=== PATIENT | male | born 1965 | race Caucasian/White ===

== ENCOUNTER → 2018-06-20 | Outpatient (CLI) | payer MEDICARE ==
[2018-06-20 12:55] LABS: BASOPHILS ABSOLUTE AUTO 0.05 K/mm3 (0.00-0.23); BASOPHILS PERCENT AUTO 0 % (0-2); EOSINOPHILS PERCENT AUTO 1 % (0-6); Hematocrit 44.2 % (37.0-53.0); IMMATURE GRAN ABSOLUTE AUTO 0.04 K/mm3 (0.00-0.10); IMMATURE GRAN PERCENT AUTO 0 % (0-1); LYMPHOCYTES ABSOLUTE AUTO 1.65 K/mm3 (0.84-5.20); LYMPHOCYTES PERCENT AUTO 12 % (21-46); MONOCYTES ABSOLUTE AUTO 1.18 K/mm3 (0.16-1.47); MONOCYTES PERCENT AUTO 9 % (4-13); Mean Corpuscular HGB 32.8 pg (26.0-34.0); Mean Corpuscular HGB Conc 33.9 g/dL (31.5-36.5); Mean Corpuscular Volume 97 fL (80-100); Mean Platelet Volume 10.1 fL (9.1-12.4); NEUTROPHILS ABSOLUTE AUTO 10.84 K/mm3 (1.96-9.15); NEUTROPHILS PERCENT AUTO 78 % (41-73); Platelet Count 347 K/mm3 (150-400); RDW Coefficient Variation 11.9 % (11.7-14.2); RDW Standard Deviation 42.7 fL (35.1-46.3); Red Blood Cell Count 4.58 M/mm3 (4.30-5.90); White Blood Cell Count 13.86 K/mm3 (4.00-11.30)
[2018-06-20 15:24] LABS: Adenovirus F 40/41 Not Detected (NOT DETECT); Astrovirus Not Detected (NOT DETECT); Campylobacter Sp Not Detected (NOT DETECT); Cryptosporidium Not Detected (NOT DETECT); Cyclospora Cayetanensis Not Detected (NOT DETECT); E. Coli O157 Not Detected (NOT DETECT); Entamoeba Histolytica Not Detected (NOT DETECT); Enteroaggregative E. coli-EAEC Not Detected (NOT DETECT); Enteropathogenic E. coli-EPEC Not Detected (NOT DETECT); Enterotoxigenic E. coli-ETEC Not Detected (NOT DETECT); Giardia Lamblia Not Detected (NOT DETECT); Norovirus GI/GII Not Detected (NOT DETECT); Plesiomonas Shigelloides Not Detected (NOT DETECT); Rotavirus A Not Detected (NOT DETECT); Salmonella Sp Not Detected (NOT DETECT); Sapovirus Not Detected (NOT DETECT); Shiga Toxin-prod E. coli-STEC Not Detected (NOT DETECT); Shigella/Enteroin E. coli-EIEC Not Detected (NOT DETECT); Vibrio Cholerae Not Detected (NOT DETECT); Vibrio Sp Not Detected (NOT DETECT); Yersinia Enterocolitica Not Detected (NOT DETECT)
== END | disposition home or self-care (01) ==
LOC: LAB SHORT 12:40 → LAB 12:40
PROVIDERS: Emergency Medicine
DX: R10.84 Generalized abdominal pain (principal); R19.7 Diarrhea, unspecified
CPT/HCPCS: 85025; 87507

== ENCOUNTER → 2018-06-30 | Outpatient (CLI) | payer MEDICARE ==
[2018-06-30 14:27] LABS: BASOPHILS ABSOLUTE AUTO 0.04 K/mm3 (0.00-0.23); BASOPHILS PERCENT AUTO 0 % (0-2); EOSINOPHILS ABSOLUTE AUTO 0.22 K/mm3 (0.00-0.68); EOSINOPHILS PERCENT AUTO 2 % (0-6); Hematocrit 42.6 % (37.0-53.0); Hemoglobin 14.1 g/dL (13.5-17.5); IMMATURE GRAN ABSOLUTE AUTO 0.04 K/mm3 (0.00-0.10); IMMATURE GRAN PERCENT AUTO 0 % (0-1); LYMPHOCYTES ABSOLUTE AUTO 2.04 K/mm3 (0.84-5.20); LYMPHOCYTES PERCENT AUTO 16 % (21-46); MONOCYTES ABSOLUTE AUTO 0.93 K/mm3 (0.16-1.47); MONOCYTES PERCENT AUTO 8 % (4-13); Mean Corpuscular HGB 32.2 pg (26.0-34.0); Mean Corpuscular HGB Conc 33.1 g/dL (31.5-36.5); Mean Corpuscular Volume 97 fL (80-100); Mean Platelet Volume 10.5 fL (9.1-12.4); NEUTROPHILS PERCENT AUTO 74 % (41-73); Platelet Count 370 K/mm3 (150-400); RDW Coefficient Variation 11.9 % (11.7-14.2); RDW Standard Deviation 42.9 fL (35.1-46.3); Red Blood Cell Count 4.38 M/mm3 (4.30-5.90); White Blood Cell Count 12.47 K/mm3 (4.00-11.30)
[2018-06-30 14:43] LABS: Alanine Aminotransfer (ALT/SGP 14 U/L (12-78); Albumin, Blood 3.2 g/dL (3.4-5.0); Albumin/Globulin Ratio 0.7 (0.8-1.8); Alk Phos 60 U/L (50-136); Anion Gap 5 mmol/L (6-16); Aspartate Aminotrans (AST/SGOT 7 U/L (12-37); Bilirubin, Total 0.5 mg/dL (0.1-1.0); Blood Urea Nitrogen 7 mg/dL (8-24); Bun/Creatinine Ratio 9.6 (12.0-20.0); CO2, Blood 29 mmol/L (21-32); Calcium, Blood 8.5 mg/dL (8.5-10.1); Chloride, Blood 105 mmol/L (98-108); Creatinine, Blood 0.73 mg/dL (0.60-1.20); Globulin, Blood 4.3 g/dL (2.2-4.0); Glomerular Filtration Rate >60 (60-); Glucose, Blood 91 mg/dL (70-99); Potassium, Blood 3.9 mmol/L (3.5-5.5); Sodium, Blood 139 mmol/L (136-145); Total Protein, Blood 7.5 g/dL (6.4-8.2)
== END | disposition home or self-care (01) ==
LOC: LAB SHORT 14:15 → LAB 14:15
PROVIDERS: Anesthesiology
DX: R10.84 Generalized abdominal pain (principal)
CPT/HCPCS: 80053; 85025

== ENCOUNTER 2018-07-13 19:03 | Inpatient (IN) | payer MEDICARE ==
[~2018-07-13] VITALS: Ht 177.8 cm; Wt 73.2 kg
[2018-07-13 19:41] LABS: BASOPHILS ABSOLUTE AUTO 0.03 K/mm3 (0.00-0.23); BASOPHILS PERCENT AUTO 0 % (0-2); EOSINOPHILS ABSOLUTE AUTO 0.05 K/mm3 (0.00-0.68); EOSINOPHILS PERCENT AUTO 0 % (0-6); Hematocrit 36.8 % (37.0-53.0); Hemoglobin 12.5 g/dL (13.5-17.5); IMMATURE GRAN ABSOLUTE AUTO 0.07 K/mm3 (0.00-0.10); IMMATURE GRAN PERCENT AUTO 0 % (0-1); LYMPHOCYTES ABSOLUTE AUTO 2.47 K/mm3 (0.84-5.20); LYMPHOCYTES PERCENT AUTO 15 % (21-46); MONOCYTES ABSOLUTE AUTO 1.49 K/mm3 (0.16-1.47); MONOCYTES PERCENT AUTO 9 % (4-13); Mean Corpuscular HGB 31.3 pg (26.0-34.0); Mean Platelet Volume 10.1 fL (9.1-12.4); NEUTROPHILS ABSOLUTE AUTO 12.15 K/mm3 (1.96-9.15); NEUTROPHILS PERCENT AUTO 75 % (41-73); Platelet Count 366 K/mm3 (150-400); RDW Coefficient Variation 11.9 % (11.7-14.2); Red Blood Cell Count 3.99 M/mm3 (4.30-5.90); White Blood Cell Count 16.26 K/mm3 (4.00-11.30)
[2018-07-13 19:44] LABS: Mean Corpuscular Volume 92 fL (80-100)
[2018-07-13 19:53] LABS: International Normalized Ratio 1.06; Prothrombin Time Results 11.2 Sec (9.7-11.5)
[2018-07-13 20:03] LABS: Alanine Aminotransfer (ALT/SGP 14 U/L (12-78); Albumin, Blood 3.1 g/dL (3.4-5.0); Albumin/Globulin Ratio 0.6 (0.8-1.8); Alk Phos 83 U/L (50-136); Anion Gap 7 mmol/L (6-16); Aspartate Aminotrans (AST/SGOT 8 U/L (12-37); Bilirubin, Total 0.4 mg/dL (0.1-1.0); Blood Urea Nitrogen 6 mg/dL (8-24); Bun/Creatinine Ratio 7.3 (12.0-20.0); CO2, Blood 25 mmol/L (21-32); Calcium, Blood 8.6 mg/dL (8.5-10.1); Chloride, Blood 103 mmol/L (98-108); Creatinine, Blood 0.82 mg/dL (0.60-1.20); Globulin, Blood 5.1 g/dL (2.2-4.0); Glomerular Filtration Rate >60 (60-); Glucose, Blood 92 mg/dL (70-99); Potassium, Blood 3.2 mmol/L (3.5-5.5); Sodium, Blood 135 mmol/L (136-145); Total Protein, Blood 8.2 g/dL (6.4-8.2)
--- NOTE | 2018-07-14 07:18 | NUR ---
SHIFT SUMMARY PT NEW ADMIT THIS SHIFT. AAOX4. NPO. DISCOMFORT CONTROLLED WITH 1MG IV DILAUDID Q2H. NO NAUSEA/EMESIS. INDEPENDENT IN ROOM. ORIENTED TO ROOM + CALL LIGHT USE. GOOD OUTPUT. PT RESTED INTERMITTENTLY T/O NIGHT. CALL LIGHT IN REACH + PT USES FOR ASSISTANCE.
--- NOTE | 2018-07-14 17:30 | NUR ---
SHIFT SUMMARY PT AAOX4. PAIN MANAGED 1MG DILAUDID X7 DURING SHIFT EVERY 2 HOURS. TORODOL X2 FOR PAIN WELL. PT INDEPENDANT TO BATHROOM, EXPRESSED SOME DIFFICULTY WITH URINATION, STILL ABLE TO URINATE. PT CALLS APPROPRIATLY, ABLE TO MOVE IN BED. CALL LIGHT IN REACH. PT TOLERATING CLEAR LIQUIDS.
--- NOTE | 2018-07-14 17:31 | NUR ---
THIS RN AGREES WITH DATA CENTER ENGINEER DOCUMENTATION.
[2018-07-15 05:04] LABS: BASOPHILS ABSOLUTE AUTO 0.03 K/mm3 (0.00-0.23); BASOPHILS PERCENT AUTO 0 % (0-2); EOSINOPHILS ABSOLUTE AUTO 0.15 K/mm3 (0.00-0.68); EOSINOPHILS PERCENT AUTO 1 % (0-6); Hematocrit 31.2 % (37.0-53.0); Hemoglobin 10.5 g/dL (13.5-17.5); IMMATURE GRAN ABSOLUTE AUTO 0.04 K/mm3 (0.00-0.10); IMMATURE GRAN PERCENT AUTO 0 % (0-1); LYMPHOCYTES ABSOLUTE AUTO 1.75 K/mm3 (0.84-5.20); LYMPHOCYTES PERCENT AUTO 16 % (21-46); MONOCYTES ABSOLUTE AUTO 1.23 K/mm3 (0.16-1.47); MONOCYTES PERCENT AUTO 11 % (4-13); Mean Corpuscular HGB 31.3 pg (26.0-34.0); Mean Corpuscular HGB Conc 33.7 g/dL (31.5-36.5); Mean Corpuscular Volume 93 fL (80-100); Mean Platelet Volume 9.8 fL (9.1-12.4); NEUTROPHILS PERCENT AUTO 71 % (41-73); Platelet Count 257 K/mm3 (150-400); RDW Coefficient Variation 11.8 % (11.7-14.2); RDW Standard Deviation 40.1 fL (35.1-46.3); Red Blood Cell Count 3.35 M/mm3 (4.30-5.90)
[2018-07-15 05:24] LABS: Anion Gap 8 mmol/L (6-16); Blood Urea Nitrogen 7 mg/dL (8-24); CO2, Blood 24 mmol/L (21-32); Chloride, Blood 105 mmol/L (98-108); Glomerular Filtration Rate >60 (60-); Glucose, Blood 90 mg/dL (70-99); Potassium, Blood 3.6 mmol/L (3.5-5.5); Sodium, Blood 137 mmol/L (136-145)
--- NOTE | 2018-07-15 07:46 | NUR ---
SUMMARY PT REQUESTING AND RECEIVING DILAUDID Q2 HR IV TONIGHT FOR PAIN EXCEPT WHEN ER ORDER WAS OUTDATED AT BEGINNING OF SHIFT AND IT WAS NECESSARY TO OBTAIN NEW ORDER. PT RAT ES PAIN FROM 8-10 CONSISTENLTY ALTHOUGH REPORTS TO THIS RN PAIN IS "BETTER " THAN ON ADMIT.
--- NOTE | 2018-07-15 17:04 | NUR ---
SUMMARY NO ACUTE CHANGES T/O SHIFT. PT HAD TWO EPISODES OF EMESIS DURING SHIFT. REPORTED FEELS NAUSEATED; HAVE MSG OUT TO DR MOTA TO OBTAIN ORDERS FOR NAUSEA MEDICATION. MEDICATED REGULARLY T/O SHIFT PER ORDERS FOR ABDOMINAL PAIN. PT REPORTS PAIN IS "MUCH BETTER" THAN BEFORE ADMIT. PT AMBULATED INDEPENDENTLY IN HALLS TWICE DURING SHIFT. PLEASANT AND COOPERATIVE. CALL LIGHT IN REACH.
--- NOTE | 2018-07-16 06:53 | NUR ---
.SUMMARY PT REQUIRING DILAUDID IV Q2 HR FOR PAIN CONTROL AND ZOFRAN FOR NAUSEA. PT HAD SMALL LIQ BROWN STOOL THIS AM. VOIDING JOSE URINE.PT REPORTS STREAM SLOW ALTHOUGH STATES NO FURTHER URGE TO VOID AT PRESENT. BLADDER SCANNED FOR 299 ENC PT TO ATTEMPT VOID EVEN WITHOUT URGE. PT AGREES
--- NOTE | 2018-07-16 17:04 | NUR ---
SUMMARY NO ACUTE CHANGES T/O SHIFT. DR MOTA CHANGED PT'S PAIN MEDS FROM IV DILAUDID TO PO NORCO. THIS AFTERNOON, PT'S PAIN MANAGEMENT AND NAUSEA HAS IMPROVED. ALSO VOIDING MORE. AMBULATES IN HALLS AND AMBULATED OUTSIDE INDEPENDENTLY. PLEASANT AND COOPERATIVE. CALL LIGHT IN REACH.
--- NOTE | 2018-07-16 17:31 | NUR ---
turned over care to Chantell KUMAR
--- NOTE | 2018-07-17 06:41 | NUR ---
SUMMARY PT REPORTS PAIN WELL CONTROLLED WITH PO PAIN MEDS. NO C/O NAUSEA. VOIDIG CLR YELOW TONIGHT. PASSING FLATUS.
--- NOTE | 2018-07-17 10:00 | NUR ---
CHANGE IN URINE PT'S URINE IS MUCH DARKER, LIGHT BROWN. NOTIFIED DR MOTA.
--- NOTE | 2018-07-17 17:57 | NUR ---
SHIFT SUMMARY PT IS DOING WELL AND TOLERATING FULL LIQUID DIET WELL. MEDICATED FOR PAIN ONLY ONCE DURING SHIFT WITH ONE NORCO. VOIDING AND PASSING GAS. URINE WAS DARK TEA COLOR BEGINNING OF SHIFT AND IS NOW A CLEAR, YELLOW COLOR. PATIENT DENIES ANY PAIN OR DIFFICULTY WITH URINATION. IND IN ROOM AND AMBULATED SEVERAL TIMES HALLWAY T/O DAY.
--- NOTE | 2018-07-17 18:04 | NUR ---
TOLERATING DIET PT TOLERATING CLEAR LIQUID DIET WELL. EDUCATED TO TAKE SMALL SIPS SLOWLY AND TO REPORT ANY N/V OR DISCOMFORT.
--- NOTE | 2018-07-18 04:57 | NUR ---
SHIFT SUMMARY: NO ACUTE CHANGES OVER NIGHT. PAIN MANAGED WITH NORCO 10MG Q4 PER EMAR. GIVEN ZOFRAN FOR C/O NAUSEA ONCE. PT MAN FULL LIQUID DIET. INDEPENDENT IN ROOM. AMBULATING OUTSIDE PRN. LIPIDS AND CLINIMIX INFUSING. PT IN PROCESS OF DRINKING FULL AMOUNT OF ORAL CONTRAST. PLAN FOR CT THIS AM AT 0600.
--- NOTE | 2018-07-18 05:27 | NUR ---
PT REPORTS A SUDDEN "TEARING" PAIN IN ABD WHILE ATTEMPTING TO HAVE A BM. PT REPORTS PAIN LASTED FOR APPROX 10 SEC. STATES THAT THE LAST TIME HE FELT THAT TYPE OF PAIN WAS 6 WEEKS AGO WHEN THE SYMPTOMS BEGAN. PT NOW REPORTING THAT PAIN IS TOLERABLE.
--- NOTE | 2018-07-18 05:56 | NUR ---
PT HAS COMPLETED ORAL CONTRAST AND IS NOW SALINE LOCKED FOR SCHED CT SCAN. PT TRANSPORTING VIA WHEELCHAIR. GIVEN PAIN MEDICATION. PT ALSO GIVEN ZOFRAN R/T NAUSEA FROM CONTRAST.
--- NOTE | 2018-07-18 06:17 | NUR ---
PT BACK TO ROOM FROM CT SCAN
--- NOTE | 2018-07-18 17:44 | NUR ---
SHIFT SUMMARY PT DOING WELL, TOLERATING REGULAR DIET, AMBULATING SEVERAL TIMES IN HALLWAY AND IND IN ROOM. VOIDING, PASSING GAS, AND BM TODAY. MEDICATED ONCE FOR PAIN WITH ONE NORCO. REPORTS ONE EPISODE OF NAUSEA THAT RESOLVED ON OWN.
--- NOTE | 2018-07-19 16:54 | NUR ---
SHIFT SUMMARY NO ACUTE CHANGES TODAY. PT REPORTS FEELING MUCH BETTER. TAKING 1 NORCO FOR PAIN PRN. AMBULATING HALLWAY INDEPENDENTLY. VOIDING AND DID HAVE A LIQ BM TODAY. CLINIMIX AND LIPIDS DC'D. PT MAN REG DIET. PLAN IS FOR PT TO DC HOME TOMORROW. USES CALL LIGHT APPROPRIATELY. WILL CONT TO MONITOR.
--- NOTE | 2018-07-20 05:14 | NUR ---
PT HAD NO ACUTE CHANGES T/O NIGHT; VSS. PAIN MGD PER EMAR W/REP RELIEF. PT MAN REG PO, NO C/O N/V. PT VOIDING URINE W/O DIFFICULTY, REP STOOL BECOMING SOMEWHAT MORE FORMED. PT YANY IDEP IN ROOM, IS USING CALL LIGHT FOR ASSISTANCE. PLAN FOR D/C HOME TODAY. WILL CONT TO MONITOR UNTIL REP GIVEN TO ONCOMING RN.
[2018-07-20] MEDS ORDERED: LEVO750 PO (09:53)
[2018-07-20] MEDS ORDERED: Norco 5-325 Ta1 EACH PO (09:53)
[2018-07-20] MEDS ORDERED: METR500 PO (09:54)
--- NOTE | 2018-07-20 11:07 | NUR ---
DISCHARGED DC'D IV, CATHETER INTACT. REVIEWED DC PAPERWORK; PT VERBALIZED UNDERSTANDING. CALLED FLAG[facility] AND LEVAQUIN PRESCRIPTION IN TO PAUL. PT LEFT UNIT BY AMBULATION, ACCOMPANIED BY FAMILY. POSSESSIONS AND DC PAPERWORK IN HAND.
== END 2018-07-20 11:08 | disposition home or self-care (01) | DRG 392 ==
LOC: ER 19:03 → SURS 19:04
PROVIDERS: Emergency Medicine; ADMIT Surgery
DX: K57.20 Diverticulitis of large intestine with perforation and abscess without bleeding (principal)
CPT/HCPCS: 36415; 74177; 80048; 80053; 83605; 83690; 85025; 85610; 87040; 93005; 93010; 96365; 96368; 96375; 99285-25; A9270-GY; J1170; J1885; J1956; J2405; J3370; J3480; J7030; J7050; J7120; Q9967

== ENCOUNTER 2018-09-04 11:18 | Inpatient (IN) | payer MEDICARE ==
[~2018-09-04] VITALS: Ht 177.8 cm; Wt 70.6 kg
[~2018-09-04 11:18] MED LIST: ACIDOPHILUS PR0.5 MG PO; DOCU100 PO; LEVO750 PO; METR500 PO; MIRALAX17 GM PO; NEOM500 PO; Norco 5-325 Ta1 EACH PO
--- NOTE | 2018-09-04 12:32 | NUR ---
1150 Ambulatory in Day Surgery Surgical site prepped with 2% Chlorhexidine cloth wipe. History, Chart, Medications and Allergies reviewed before start of procedure.Lungs clear T/O to Auscultation. Patient confirms NPO status and agrees with scheduled surgery. Pre-Op teaching done. Pt verbalizes understanding. Patient reports completing Chlorhexadine shower X2 prior to admission to hospital.
--- NOTE | 2018-09-04 20:10 | NUR ---
PT WITH EPIDURAL RUNNING TO CLEAR INTACT SITE. MOVES ARMS FREELY. RESP APPEAR EVENA ND UNLABORED. PT HAS NOTED HYPERSENSITIVITY TO L ABD AND SLIGHT DECREASED SENSATION R ABD. L THIGH WITH NO N/T NOTED . R THIGH AND CALF REPORTED N/T ALTHOUGH WIGGLES TOES BILAT AND ABLE TO LIFT R KNEE SLIGHTLY AND MODERATLEY LIFTS L KNEE. PER AND DAY RN THESE CKS ARE UNCHANGED.
--- NOTE | 2018-09-05 03:40 | NUR ---
PT WITH CONTIUED SAME EPIDURAL CKS AND CRYING WHEN REPOSITIONED ALTHOUGH EPIDURAL WAS INCREASED TO MAX OF 16 PER ORDERS. I CALLED ANESTHESIA AND DISCUSSED FULL ASSESSMENT AND C/O PAIN. DR HINOJOSA CAME TO SEE PT AND REPORTED HE GAVE PT BOLUS 5 ML EACH XYLOCAINE WITH EPI AND WITHOUT. AFTER PT REPORTED SOME IMPROVEMENT HOWEVER, NO CHANGE IN PAIN NUMBER HE USED TO RATE PAIN.ANESTHSIA VERB PT WOULD BE SEEING ANOTHER ANESTHIA LATER TODAY IN FOLLOW UP.
[2018-09-05 03:54] LABS: BASOPHILS ABSOLUTE AUTO 0.02 K/mm3 (0.00-0.23); BASOPHILS PERCENT AUTO 0 % (0-2); EOSINOPHILS PERCENT AUTO 0 % (0-6); Hematocrit 29.5 % (37.0-53.0); Hemoglobin 9.7 g/dL (13.5-17.5); IMMATURE GRAN ABSOLUTE AUTO 0.06 K/mm3 (0.00-0.10); IMMATURE GRAN PERCENT AUTO 0 % (0-1); LYMPHOCYTES ABSOLUTE AUTO 1.25 K/mm3 (0.84-5.20); LYMPHOCYTES PERCENT AUTO 9 % (21-46); MONOCYTES PERCENT AUTO 8 % (4-13); Mean Corpuscular HGB 30.7 pg (26.0-34.0); Mean Corpuscular HGB Conc 32.9 g/dL (31.5-36.5); Mean Corpuscular Volume 93 fL (80-100); Mean Platelet Volume 9.5 fL (9.1-12.4); NEUTROPHILS ABSOLUTE AUTO 12.23 K/mm3 (1.96-9.15); NEUTROPHILS PERCENT AUTO 83 % (41-73); Platelet Count 320 K/mm3 (150-400); RDW Coefficient Variation 13.2 % (11.7-14.2); RDW Standard Deviation 45.2 fL (35.1-46.3); Red Blood Cell Count 3.16 M/mm3 (4.30-5.90); White Blood Cell Count 14.76 K/mm3 (4.00-11.30)
[2018-09-05 04:09] LABS: Anion Gap 5 mmol/L (6-16); Blood Urea Nitrogen 16 mg/dL (8-24); Bun/Creatinine Ratio 21.1 (12.0-20.0); CO2, Blood 26 mmol/L (21-32); Calcium, Blood 7.4 mg/dL (8.5-10.1); Chloride, Blood 108 mmol/L (98-108); Creatinine, Blood 0.76 mg/dL (0.60-1.20); Glomerular Filtration Rate >60 (60-); Glucose, Blood 123 mg/dL (70-99); Potassium, Blood 4.1 mmol/L (3.5-5.5); Sodium, Blood 139 mmol/L (136-145)
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
--- NOTE | 2018-09-05 13:35 | NUR ---
DR. HILL NOTIFIED THAT PT'S PAIN IS INCREASED, PT NOW RATING 7/10 WHEN THIS AM PAIN WAS 4/10 AT ABD. EPIDURAL NOT MANAGING PT PAIN WELL. DR. HILL ASKED THIS RN TO CALL DR.STUART DEJESUS. DR. HINOJOSA NOTIFIED, WILL CTM PT STATUS.
--- NOTE | 2018-09-05 20:05 | NUR ---
DR. MOTA IN TO SEE PT, EPIDURAL CONTINUES TO NOT MANAGE PAIN. ORDER TO STOP EPIDURAL AND START IV OPTICIAN APPRENTICE FENTANYAL. EPIDURAL STOPPED AT 1655, EPIDURAL CATH LEFT IN PLACE. WILL START FENTANYAL OPTICIAN APPRENTICE AND CTM PT STATUS
--- NOTE | 2018-09-05 20:10 | NUR ---
SUMMARY: NO ACUTE CHANGE TODAY. SEE PREVIOUS NOTES. PT VSS AND Q1 HR EPIDURAL CHECKS STABLE. PT PAIN INCREASED THROUGHOUT DAY WITHOUT RELIEF FROM EPIDURAL OR IV TORADOL, SWITCHED TO FENTAYAL NAPHTHALENE STILL OPERATOR, SEE MD NOTES AND EMAR. PT RATING PAIN 5/10 AT END OF SHIFT. OSTOMY WNL, NO GAS OR OUTPUT, SURGICAL SITE INTACT. NO ACUTE SAFETY CONCERNS AT THIS TIME REPORT GIVEN TO JOSÉ GARCIA.
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
[2018-09-06] MEDS ORDERED: Flonase 0.05% N16 GM (07:13)
[2018-09-06] MEDS ORDERED: XYZAL5 MG PO (07:14)
--- NOTE | 2018-09-06 18:18 | NUR ---
SHIFT SUMMARY NO ACUTE CHANGES. VSS. PT USING FENTANYL COREMAKER MACHINE FOR PAIN AND RECEIVING TORADOL. PREVENA TO MIDLINE REMAINS CDI WITH BINDER IN PLACE. PT EPIDURAL DC'D AND SENSATION IS BETTER--SLIGHT NUMBNESS TO R THIGH ONLY BUT CAN WIGGLE TOES AND FLEX AND LIFT LEGS. PLANNING TO GET PT INTO CHAIR. ISRAEL PATENT. PT MAN CLEAR LIQ DIET. USES CALL LIGHT APPROPRIATELY.
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
--- NOTE | 2018-09-07 16:33 | NUR ---
SHIFT SUMMARY NO ACUTE CHANGES THIS SHIFT. PT CONT TO DO WELL. USING FENTANYL BIOINFORMATICS ASSISTANT FOR PAIN AND TORADOL PRN. PT UP TO CHAIR FOR PART OF THE DAY WITH SBA. PREVENA WOUND VAC TO MIDLINE ABD CDI WITH BINDER IN PLACE AT TIMES. OSTOMY STOMA BEEFY RED WITH SCANT SS DRAINAGE. NO FLATUS NOTED IN BAG YET. PT ADVANCING TO REG DIET FOR DINNER TONIGHT. USING URINAL TO VOID AT BEDSIDE. ENCOURAGING I/S AND FLUTTER VALVE USE. CALL LIGHT WITHIN REACH.
--- NOTE | 2018-09-08 05:34 | NUR ---
SHIFT SUMMARY: PT POD #4 FOR SIGMOID COLECTOMY. NO ACUTE CHANGES THIS SHIFT. OSTOMY DRAINING SMALL AMT OF SS FLUID. PRODUCING SOME GAS. PT EDUCATED ON HOW TO BURP OSTOMY BAG. PROVENA WOUND VAC INTACT WITH FOAM COMPRESSED. VOIDING SMALL AMT IN URINE. PAIN MANAGED WITH FENTANYL LINK TRAINER OPERATOR AND TORADOL. C/O SOME GAS PAINS. MAN REG DIET. DENIES N/V. PT IN CHAIR FOR PART OF SHIFT.
--- NOTE | 2018-09-08 07:40 | NUR ---
pt passing flatus stoma pink and moist no stool no nausea aleyda food pt only moving in the room encouraged pt to amb in hallway also discussed pain control pain is 6/10 with cough
--- NOTE | 2018-09-08 12:22 | NUR ---
pt eating lunch
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
--- NOTE | 2018-09-08 17:18 | NUR ---
ostomy teaching with demonstration supplies given with handouts also with
--- NOTE | 2018-09-08 18:12 | NUR ---
pt eating dinner
--- NOTE | 2018-09-08 18:32 | NUR ---
pt went outside to smoke still no stool flatus
--- NOTE | 2018-09-09 07:48 | NUR ---
SUMMARY: POD 5 RUPTURED DIVERTIC WITH ABCESS AND NEW COLOSTOMY PLACEMENT BY DR. MOTA. VSS, AFEBRILE, ROOM AIR, TOLERATING SMALL PORTIONS OF REG DIET, VOIDING. MINIMAL GAS OUTPUT IN OSTOMY APPLIANCE WITH SMALL AMOUNT OF BLOODY DRAINAGE. PREVENA TUBING AND CANNISTER EMPTY OF ANY DRAINAGE. PT PAIN WELL CONTROLLED WITH 2 TABS NORCO AND TORDAL. PT BEGAN HAVING MODERATE ABD CRAMPING AND PAIN WITH MILD DISTENTION; ENCOURAGED TO AMBULATE FREQUENTLY TOLERATED TODAY TO BEGIN PASSING MORE GAS.
--- NOTE | 2018-09-09 16:23 | NUR ---
SHIFT SUMMARY PT A&OX4, RA, VSS. POD#5 COLECTOMY W/OSTOMY W/FLATUS AND BROWN LIQ STOOL OUTPUT, MIDLINE PREVENA. PAIN MANAGED WITH 10 MG OXY AND TORADOL. MAN REG DIET, DENIES N&V. INDEPENDENT, AMBULATING IN ROOM, HALLWAY AND OUTSIDE TO SMOKE. WCTM.
--- NOTE | 2018-09-09 19:30 | NUR ---
PT OUT OF ROOM DURING ROUNDING. WILL AWAIT RETURN AND DO FULL ASSESSMENT.
--- NOTE | 2018-09-10 06:06 | NUR ---
POD 6 S/P COLECTOMY/COLOSTOMY. PT VSS T/O NIGHT. PAIN MGD PER EMAR W/REP RELIEF. SURG DRESSING CDI. OSTOMY PUTTING OUT LIQ BROWN STOOL. OSTOMY EDUCATION CONT, PT ENGAGED AND ASKING QUESTIONS. PT AMB FREQUENTLY IN HALLS, MAN WELL. PLAN TO D/C HOME TODAY. WILL CONT TO MONITOR UNTIL REP GIVEN TO ONCOMING RN.
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
[2018-09-10] MEDS ORDERED: Norco 10-325 T1 EACH PO (14:12)
--- NOTE | 2018-09-10 15:51 | NUR ---
DR. GUILLAUME SAW PT AND DC ORDERS ENTERED. PT'S PRAVENA WOUND VAC DC'D AND REPLACED WITH MEDIPORE DRESSING, SURGICAL SITE WNL. OSTOMY APPLIANCE REPLACED, EDUCATED PT AND PT ON HOW TO REPLACE APPLANCE, ASSISTED THIS RN IN REPLACING. WRITTEN EDUCATIONAL MATERIAL GIVEN. PT EDUCATED ABOUT OSTOMY CARE, DIET, AND HOW TO OBTAIN OSTOMY SUPPLIES. CATE, UNDERGRADUATE INTERN ORDERED SUPPLIES VIA CONVATE. UPON DISCHARGE PT GIVEN OSTOMY SUPPLIES TO LAST UNTIL ORDER COMES TO PT HOME. WENT OVER DC PACKET, SCRIPTS GIVEN TO PT . PT VERBALIZED UNDERSTANDING. LEFT UNIT ON FOOT WITH AT 1430.
== END 2018-09-10 14:30 | disposition home or self-care (01) | DRG 331 ==
LOC: SURS 11:18 → PRE IP 13:30 → SURS 18:06
PROVIDERS: ADMIT Surgery
PROC: 0D1N0Z4 Bypass Sigmoid Colon to Cutaneous, Open Approach (ICD-10-PCS; 2018-09-04)
PROC: 0DTN0ZZ Resection of Sigmoid Colon, Open Approach (ICD-10-PCS; principal; 2018-09-04 13:30)
DX: K57.20 Diverticulitis of large intestine with perforation and abscess without bleeding (principal); F17.210 Nicotine dependence, cigarettes, uncomplicated; F90.9 Attention-deficit hyperactivity disorder, unspecified type
CPT/HCPCS: 36415; 80048; 85025; 88307; 94762; J1100; J1170; J1650; J1885; J1956; J2250; J2405; J2704; J2765; J3010; J7120

== ENCOUNTER 2019-04-10 10:40 | Inpatient (IN) | payer MEDICARE ==
[~2019-04-10] VITALS: Ht 177.8 cm; Wt 78.5 kg
[~2019-04-10 10:40] MED LIST changes: +Flonase 0.05% N16 GM; +Norco 10-325 T1 EACH PO; +XYZAL5 MG PO
--- NOTE | 2019-04-11 14:00 | NUR ---
PT ARRIVED TO ROOM 231 S/P COLOSTOMY CLOSURE PT STILL HAS OSTOMY PT STATED PAIN IS 7/10 PT AT BEDSIDE NO NAUSEA PT HAS FOLDED UP BLANKET TO SPLINT ABD PT GIVEN SOME ICE CHIPS PT HAS ORDER FOR SURGICAL DRESSING MAKER CALLED PHARMACY FOR ORDER PT HAS A MEENA DRESSING
--- NOTE | 2019-04-11 14:59 | NUR ---
DR MOTA BY TO SEE PT
--- NOTE | 2019-04-11 16:27 | NUR ---
pt tearful stated pain is bad stated he is falling asleep but when he wakes up he is very painful she feels like he is very anxious message left at dr beavers office he is with a pt
--- NOTE | 2019-04-11 17:31 | NUR ---
ORAL ATIVAN 1 MG GIVEN CL DIET WILL TRIAL TO SEE IF PAIN IS BETTER
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
--- NOTE | 2019-04-11 23:26 | NUR ---
CALLED DR MOTA REGARDING PT PAIN LEVEL 7 ON CURRENT MEDS. NO CHANGE OF ORDERS RECEIVED.
[2019-04-12 05:00] LABS: BASOPHILS ABSOLUTE AUTO 0.02 K/mm3 (0.00-0.23); BASOPHILS PERCENT AUTO 0 % (0-2); EOSINOPHILS ABSOLUTE AUTO 0.03 K/mm3 (0.00-0.68); EOSINOPHILS PERCENT AUTO 0 % (0-6); Hematocrit 37.5 % (37.0-53.0); Hemoglobin 12.8 g/dL (13.5-17.5); IMMATURE GRAN ABSOLUTE AUTO 0.02 K/mm3 (0.00-0.10); IMMATURE GRAN PERCENT AUTO 0 % (0-1); LYMPHOCYTES ABSOLUTE AUTO 1.49 K/mm3 (0.84-5.20); LYMPHOCYTES PERCENT AUTO 13 % (21-46); MONOCYTES ABSOLUTE AUTO 1.16 K/mm3 (0.16-1.47); MONOCYTES PERCENT AUTO 10 % (4-13); Mean Corpuscular HGB 33.3 pg (26.0-34.0); Mean Corpuscular HGB Conc 34.1 g/dL (31.5-36.5); Mean Corpuscular Volume 98 fL (80-100); Mean Platelet Volume 9.9 fL (9.1-12.4); NEUTROPHILS ABSOLUTE AUTO 8.62 K/mm3 (1.96-9.15); NEUTROPHILS PERCENT AUTO 76 % (41-73); Platelet Count 242 K/mm3 (150-400); RDW Coefficient Variation 12.1 % (11.7-14.2); RDW Standard Deviation 43.7 fL (35.1-46.3); Red Blood Cell Count 3.84 M/mm3 (4.30-5.90); White Blood Cell Count 11.34 K/mm3 (4.00-11.30)
[2019-04-12 05:22] LABS: Anion Gap 4 mmol/L (6-16); Blood Urea Nitrogen 7 mg/dL (8-24); Bun/Creatinine Ratio 9.1 (12.0-20.0); CO2, Blood 28 mmol/L (21-32); Calcium, Blood 7.5 mg/dL (8.5-10.1); Chloride, Blood 108 mmol/L (98-108); Creatinine, Blood 0.77 mg/dL (0.60-1.20); Glomerular Filtration Rate >60 (60-); Glucose, Blood 116 mg/dL (70-99); Potassium, Blood 3.7 mmol/L (3.5-5.5); Sodium, Blood 140 mmol/L (136-145)
--- NOTE | 2019-04-12 07:27 | NUR ---
SUMMARY PT WTIH NO C/O NAUSEA TONIGHT, HOWEVER, SUDDEN ONSET OF EMESIS DIRECTLY AFTER REPORT GIVEN. ABD SLIGHTLY DISTENDED.BELCHING, BUT ONLY SCANT RED VIA OSTOMY. PT HAS CONTINUOUS FENTANYL VIA SERVICER COIN MACHINES NAD BOLUS DOSING WELL, AND APPEARS, HAS REACHED HIS 4 HR LIMIT EACH 4 HR THIS SHIFT.NO FURTHER TORADOL OR ATIVAN DUE YET.
--- NOTE | 2019-04-12 08:23 | NUR ---
04/12/19 0823 Bess Medrano VERIFICATIONS: EDIT CHART PER ORD.NORY.
--- NOTE | 2019-04-12 16:08 | NUR ---
SUMMARY: PT IS POD1 COLOCOLOSTOMY WITH ILEOSTOMY. NO ACUTE CHANGE TODAY. VSS, A/O. SURGICAL/WOUND VAC SITE WNL. PT CONTINUES TO HAVE PAIN AT REST AND INCREASES WITH MOVEMENT. ENCOURAGING OPERATIONS LIEUTENANT BUTTON AND TORADOL GIVEN. PT ABLE TO WALK X1 AND UP TO CHAIR X2. TOLERATING CLEAR DIET FOR THE MOST PART, DID HAVE NAUSEA X1. WILL CTM AND REPORT TO ASA KUMAR.
--- NOTE | 2019-04-12 16:55 | NUR ---
PT HAD 600ML OF BROWN/DARK RED LIQUID EMESIS AT THIS TIME. NO COFFEE GROUND SPECKS NOTED. PT REPORTED NOT FEELING NAUSATED BEFORE EMESIS AND NO NAUSEA CURRENTLY. ONLY COMPLAINT IS OF ABD PAIN AT THIS TIME. ENCOURAGED FIELD SUPERVISOR SEED PRODUCTION USE. DR. OMTA MADE AWARE OF PT EMESIS.
--- NOTE | 2019-04-13 07:25 | NUR ---
POD 2 S/P COLECTOMY REVSION. PT VSS T/O NIGHT. MEENA DRESSING INTACT W/NO ACTIVE DRNG, SEAL AND SX MAINTAINED. PAIN MGD W/EQUIPMENT TECHNICIAN NA TORADOL. PT CONT TO BE PAINFUL W/MVMT, IS ANXIOUS AT TIMES R/T PAIN. PT HAD 1 EPISODE OF MAROON EMESIS, PHENERGAN GIVEN W/REP RELIEF. OSTOMY PUTTING OUT SMALL AMT SS DRNG. ISRAEL CATH D/C THIS AM, AWAITING FIRST VOID. AMBULATION ENCOURAGED. PT CALLING FOR ASSISTANCE, REP GIVEN TO DAY RN.
--- NOTE | 2019-04-13 17:55 | NUR ---
SUMMARY: PT IS POD 2 COLOSTOMY WITH DIVERTING ILEOSTOMY. NO ACUTE CHANGE TODAY. PT REPORTS FEELING BETTER. NO EMESIS, REPORTS PAIN IS BETTER. PT ABLE TO GET UP TO CHAIR X2 AND WALK IN HALLS. NO GAS FROM OSTOMY, SS FLUID ONLY AT THIS TIME. SURGICAL SITE WNL. PT IS MAN SMALL AMT FULL LIQ DIET. NO ACUTE CONCERNS, A/O, VSS. WILL PASS REPORT TO ASA RN.
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
--- NOTE | 2019-04-14 16:15 | NUR ---
SHIFT SUMMARY PT DOING WELL THIS SHIFT. WEANED OFF OF FENTANYL NET FRONT END DEVELOPER AND PT TAKING 2 PERCOCET + IV TORADOL FOR PAIN MANAGEMENT. PT HAS ONLY HAD X1 DOSE OF IVP FENTANYL FOR BREAKTHROUGH PAIN. ADVANCED TO REGULAR DIET AND PT SLOWLY TOLERATING. IVF DC'D. PT INDEP IN ROOM AND AMBULATING HALLWAYS. OSTOMY APPLIANCE + MEENA DRESSING CHANGED THIS SHIFT R/T STOOL LEAKING INTO THE INCISION. INCISION CLEANSED AND NEW DRESSING APPLIED BY DR. MCDONNELL. DARK LIQ BROWN STOOL IN OSTOMY BAG AND STOMA WNL. FAMILY AT BEDSIDE FOR SUPPORT. PT USES CALL LIGHT APPROPRIATELY.
--- NOTE | 2019-04-15 05:11 | NUR ---
patient slept for about 4 hours and woke with 10/10 abdominal pain. po and IV medication given. producive occasional cough. up independent in his room. slight discoloration on midline barbi dressing from the ostomy appliance. no other acute changes.
--- NOTE | 2019-04-15 08:37 | NUR ---
DR MCDONNELL HERE TO SEE PT.
--- NOTE | 2019-04-15 09:26 | NUR ---
PT OSTOMY LEAKING. DR MCDONNELL CHANGED OSTOMY APPLIANCE.
[2019-04-15] MEDS ORDERED: Percocet 5-3251 EACH PO (11:37)
[2019-04-15] MEDS ORDERED: Ativan1 MG PO (11:38)
[2019-04-15] MEDS ORDERED: ONDA4ODT MM (11:39)
--- NOTE | 2019-04-15 12:00 | NUR ---
DISCHARGE: PT/FAMILY REPORTS UNDERSTANDING OF DISCHARGE INSTRUCTIONS. PT REPORTS PAIN CONTROLLED ON PO PAIN MEDICATION. PT DENIES N/V. PT REPORTS EATING AND DRINKING, VOIDING. SENT WITH SUPPLIES.
== END 2019-04-15 12:06 | disposition home or self-care (01) | DRG 331 ==
LOC: SURS 10:40 → PRE IP 10:40 → SURS 04-11 06:36 → PRE IP 04-11 06:36 → SURS 04-11 06:37 → PRE IP 04-11 08:15 → SURS 04-11 13:58
PROVIDERS: ADMIT Surgery
PROC: 0D1B4Z4 Bypass Ileum to Cutaneous, Percutaneous Endoscopic Approach (ICD-10-PCS; 2019-04-11)
PROC: 0DSN4ZZ Reposition Sigmoid Colon, Percutaneous Endoscopic Approach (ICD-10-PCS; principal; 2019-04-11 08:15)
DX: Z43.3 Encounter for attention to colostomy (principal); Z87.19 Personal history of other diseases of the digestive system
CPT/HCPCS: 36415; 80048; 85025; J1100; J1650; J1885; J1956; J2250; J2370; J2405; J2550; J2704; J3010; J7040; J7120; V2790

== ENCOUNTER 2019-04-10 10:59 | Day surgery (SDC) | payer MEDICARE ==
[~2019-04-10] VITALS: Ht 177.8 cm; Wt 79.1 kg
--- NOTE | 2019-04-10 11:28 | NUR ---
Ambulatory in Day SurgeryPatient states colon prep results clear. History, Chart, Medications and Allergies reviewed before start of procedure.Lungs clear T/O to Auscultation. Patient confirms NPO status and agrees with scheduled surgery. Patient States Post-Procedure ride home has been arranged.
--- NOTE | 2019-04-10 13:18 | NUR ---
04/10/19 1318 Delaney Weinberg History, Chart, Medications and Allergies reviewed before start of procedure.PATIENT DETERMINED TO BE ASA APPROPRIATE FOR PROPOFOL SEDATION PRIOR TO START OF PROCEDURE BY .MONITOR INTACT WITH CONTINUOUS PULSE OXIMETRY AND INTERMITTENT BP.3-LEAD EKG REVIEWED WITH PHYSICIAN PRIOR TO START OF PROCEDURE.O2 VIA N/C INTACT THROUGHOUT SEDATION/PROCEDURE.
--- NOTE | 2019-04-10 14:10 | NUR ---
Discharge instructions reviewed with patient. Patient verbalizes understanding. Copy given to patient to take home. Verbalizes understanding of procedure time in AM, as well as NPO status at midnight. Discharged via wheelchair to private car for ride home.
== END 2019-04-10 22:55 | disposition home or self-care (01) ==
LOC: ORSCMMR 10:59 → ORD 12:00 → ORSCMMR 22:55
PROVIDERS: Surgery
PROC: 0DJD8ZZ Inspection of Lower Intestinal Tract, Via Natural or Artificial Opening Endoscopic (ICD-10-PCS; principal; 2019-04-10 12:00)
DX: Z12.11 Encounter for screening for malignant neoplasm of colon (principal); K57.30 Diverticulosis of large intestine without perforation or abscess without bleeding; Z93.3 Colostomy status; F17.290 Nicotine dependence, other tobacco product, uncomplicated
CPT/HCPCS: J2704; J7120

== ENCOUNTER 2019-07-18 11:04 | Inpatient (IN) | payer MEDICARE ==
[~2019-07-18] VITALS: Ht 177.8 cm; Wt 71.9 kg
[~2019-07-18 11:04] MED LIST changes: +Ativan1 MG PO; +ONDA4ODT MM; +Percocet 5-3251 EACH PO
[2019-07-18] MEDS ORDERED: ACIDOPHILUS PO (13:35)
[2019-07-18] MEDS ORDERED: ZYRTEC10 M2 PO (13:36)
[2019-07-18] MEDS ORDERED: IMODIUM PO (13:36)
--- NOTE | 2019-07-20 06:51 | NUR ---
Ambulatory in Day Surgery. Surgical site prepped with 2% Chlorhexidine cloth wipe. History, Chart, Medications and Allergies reviewed before start of procedure. Lungs clear T/O to Auscultation. Patient confirms NPO status and agrees with scheduled surgery. Pre-Op teaching done. Pt verbalizes understanding. Patient reports completing Chlorhexadine shower X2 prior to admission to hospital.
--- NOTE | 2019-07-20 08:10 | NUR ---
07/20/19 0810 Sanjeev Meyer ISRAEL CATH PLACED PER LIA MARTINEZ
--- NOTE | 2019-07-20 18:22 | NUR ---
PT HAS BEEN STABLE POST OP. VSS. PT HAS AMBULATED HALLWAYS AND SAT IN CHAIR. NO FLATUS YET. MAN FL DIET. JUNE SL IV. VOIDING WELL. GAUZE TO LLQ CDI. PT HAS HAD NO NAUSEA. PAIN MANAGED WITH PRN MEDS. PAS TO BLE. PT USES CALL LIGHT APPROPRIATELY NEEDED.
--- NOTE | 2019-07-21 04:38 | NUR ---
SHIFT SUMMARY PT IS A/O X4 AND IND. IN ROOM. PT HAS AMBULATED IN HALLWAY DURING THE NIGHT. PT REPORTS SOME PAIN WHICH IS MANAGED WITH PO PAIN MEDS PER ORDERS. PT IS TOLERATING PO INTAKE AND VOIDING, ALTHOUGH HE HAS NOT HAD BM OR FLATUS YET. PT WAS ABLE TO GET SOME SLEEP DURING THE NIGHT. NO ACUTE CHANGES. VSS. ASSISTED WITH ADL'S PRN.
[2019-07-21] MEDS ORDERED: Norco 5-325 Ta1 EACH PO (10:50)
--- NOTE | 2019-07-21 12:00 | NUR ---
DISCHARGE: PT DC TO HOME AT THIS TIME WITH SPOUSE. IV DC'D WNL. VERBAL UNDERSTANDING OF INSTRUCTIONS, FOLLOW UP AND MEDICATIONS. SCRIPT GIVEN. PT LEFT AMBULATORY TO CARE WITH BELONGINGS.
== END 2019-07-21 12:11 | disposition home or self-care (01) | DRG 330 ==
LOC: SURS 07-20 05:52 → PRE IP 07-20 07:30 → SURS 07-20 10:39
PROVIDERS: ADMIT Surgery
PROC: 0DQE0ZZ Repair Large Intestine, Open Approach (ICD-10-PCS; principal; 2019-07-20 07:30)
DX: Z43.3 Encounter for attention to colostomy (principal); K57.32 Diverticulitis of large intestine without perforation or abscess without bleeding; F17.210 Nicotine dependence, cigarettes, uncomplicated; F98.8 Other specified behavioral and emotional disorders with onset usually occurring in childhood and adolescence
CPT/HCPCS: A9270-GY; J0690; J1100; J1885; J2250; J2405; J2704; J2710; J2765; J3010; J7120